=== PATIENT | male | born 1990 | race Caucasian/White ===

== ENCOUNTER 2020-07-19 01:03 | Emergency (ER) | payer OTHER ==
--- NOTE | 2020-07-19 08:21 | RAD ---
EXAM: XR Hand Rt 3 View STANDARD PROVIDED CLINICAL HISTORY: Pain status post injury COMPARISON: None FINDINGS: There is a transversely oriented, apex dorsally angulated fracture of the fourth metacarpal shaft. Th ere is mature surrounding callus formation. No additional fracture is evident. Alignment appears otherwise anatomic. Joint spaces appear preserved. IMPRESSION: Fracture of the fourth metacarpal demonstrating both acute and chronic components. This may reflect i ncomplete union of fracture or acute fracture through an area of prior fracture.
== END 2020-07-19 01:51 ==
LOC: MADERS 01:03
DX: S62.354A Nondisplaced fracture of shaft of fourth metacarpal bone, right hand, initial encounter for closed fracture (principal); F41.9 Anxiety disorder, unspecified; F31.9 Bipolar disorder, unspecified; W22.8XXA Striking against or struck by other objects, initial encounter

== ENCOUNTER 2020-09-11 20:51 | Emergency (ER) | payer OTHER ==
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
[2020-09-11] MEDS ORDERED: Acetaminophen 500 MG TAB ONE (21:44)
[2020-09-11] MEDS ORDERED: Ibuprofen 800 MG TAB ONE (21:44)
== END 2020-09-11 22:00 ==
LOC: MADERS 20:51
DX: S60.221A Contusion of right hand, initial encounter (principal); F17.210 Nicotine dependence, cigarettes, uncomplicated; Y04.0XXA Assault by unarmed brawl or fight, initial encounter; Y92.149 Unspecified place in prison as the place of occurrence of the external cause